=== PATIENT | female | born 1945 | race Caucasian/White ===

== ENCOUNTER → 2018-02-04 01:09 | Outpatient (CLI) | payer MEDICARE, OTHER, SELFPAY ==
--- NOTE | 2018-02-24 06:37 | ZIOP_ITS ---
ZIO PATCH MONITOR DATE OF DICTATION February 23, [address] 13 days 22 hours, February 04- 2017. INTERPRETATION Baseline rhythm Atrial fibrillation. Atrial fibrillation throughout study. Average heart rate 90 beats per minute, range 53-190. Nocturnal heart rates usually under 100 beats per minute. Daytime heart rates usually over 100 beats per minute. Rare single PVC versus aberrantly conducted beat. Rare couplet, rare triplets. No VT. No bradycardia/block. No trigged events. No symptoms. Carlito Sifuentes M.D. ALLISON/gayla T- 02/24/2018
== END ==
PROVIDERS: PCP Family Medicine; Visit Provider Family Medicine
DX: I48.91 Unspecified atrial fibrillation (principal)
CPT/HCPCS: 0296T; 93225

== ENCOUNTER → 2018-02-23 09:00 | Outpatient (CLI) | payer MEDICARE, OTHER, SELFPAY | PROVIDERS: PCP Family Medicine; Visit Provider Internal Medicine Interventional Cardiology | DX: I48.91 Unspecified atrial fibrillation (principal) | CPT/HCPCS: 0298T ==

== ENCOUNTER 2018-12-02 01:57 | Outpatient (CLI) | payer MEDICARE, OTHER, SELFPAY ==
[2018-12-02 08:10] LABS: ALT 23 U/L (12-78); AST 22 U/L (15-37); Albumin 3.8 g/dL (3.4-5.0); Alkaline Phosphatase 134 U/L (46-116); BUN 20 mg/dL (7-18); Bilirubin, Total 0.6 mg/dL (0.2-1.0); CREATININE 1.07 mg/dL (0.55-1.02); Calcium 8.9 mg/dL (8.5-10.1); Chloride 105 mmol/L (98-107); Cholesterol 207 mg/dL (50-200); Estimated GFR 50.55 (mL/min/1.73m2); Glucose 101 mg/dL (70-100); HDL Cholesterol 58 mg/dL (40-60); LDL CHOLESTEROL 126 mg/dL (<100); Sodium 142 mmol/L (136-145); Total Protein 6.7 g/dL (6.4-8.2); Triglyceride 75 mg/dL (30-150)
== END 2018-12-02 02:17 ==
PROVIDERS: PCP Family Medicine; Visit Provider Family Medicine
DX: E78.00 Pure hypercholesterolemia, unspecified (principal); I49.8 Other specified cardiac arrhythmias
CPT/HCPCS: 36415; 80053; 80061; 83721

== ENCOUNTER 2019-08-24 09:01 | Emergency (ER) | payer MEDICARE, OTHER, SELFPAY ==
[2019-08-24 09:17] VITALS: BP 122/69; PULSE 81; RESP 16; TEMP 36.7; O2SAT 98
--- NOTE | 2019-08-24 09:37 | ED.GENADUL_ITS ---
Discharge Plan Disposition Patient Disposition: HOME Condition: Stable Discharge Details Chief Complaint: Trauma Clinical Impression: Fracture of neck of left humerus, Head injury Primary Care Provider: Marisela Polanco ED Provider: Viki Harvey Home Meds and New Rx's Prescriptions: Continued aspirin [Aspirin Low-Strength] 81 MG tablet,chewable 81 mg PO DAILY RF: 0 cholecalciferol (vitamin D3) [Vitamin D3] 2,000 UNIT capsule 2,000 unit PO DAILY RF: 0 latanoprost 2.5 ML drops 1 drp Ophthalmic HS RF: 0 lorazepam 0.5 MG tablet 0.5 mg PO BID PRNQty: 30 RF: 0 diltiazem HCl 180 mg capsule,extended release 24hr 180 mg PO DAILY Qty: 90 RF: 4 calcium-vitamin D3-vitamin K 1 EACH tablet,chewable 2 ea PO DAILY RF: 0 Discharge Instructions Instructions: Arm Fracture in Adults (ED), Head Injury (ED) Additional Instructions: Keep sling on for immobilization as much as possible. Ortho will call you for a follow up appointment. Return if any severe worsening pain, problems with blood circulation to your hand, or any concerns. Also return for any worsening headache, blurry vision, nausea or vomiting, or confusion. Please take Tylenol or Ibuprofen with food every 4-6 hours as needed for pain and swelling. Referrals: Marisela Polanco MD, [place] [Primary Care Provider] - Yovani Ryder MD [ [facility] STAFF PHYSICIAN] - Medical Decision Making 74-year-old female presents after a slip and fall on the ice this morning. She states that she was bending over to pick something up and fell face forward onto the ground. She denies any loss of consciousness, neck or back pain. She is alert and oriented x4 upon arrival. She does have some abrasions noted to her forehead, bridge of nose and upper lip. She has a small hematoma noted to her left frontal scalp. She also is complaining of some left upper arm pain and has decreased range of motion without pain. Distal radial pulses are intact. No other complaints. At this time due to no focal neuro deficit, no blurry vision, no dizziness or LOC I have not ordered a head CT. X-ray of her left humerus was ordered. Patient states she is up-to-date on her tetanus shot. Tylenol p.o. ordered. FINDINGS: There is a mildly impacted fracture through the surgical neck of the left humerus. Fracture may extend proximally to involve the greater tuberosity. No other fracture is seen. Soft tissues are unremarkable. IMPRESSION: Mildly impacted fracture of the surgical neck of the left humerus. Spoke with Dr. Polo who is aboriginal education teacher for ortho at this time, discussed xrays and recommended treatment. He agrees that a basic sling should work. Patient placed on Ortho call list for follow up. Patient discharged remained hemodynamically stable throughout stay, discussed strict return instructions and home care, verbalized understanding. Dx: Left humural neck fracture, Closed head injury Ddx:Occult fracture, Concussion, Other fracture or injury HPI General Mode of arrival: ambulatory . Date/Time Provider Initiated Documentation: 08/24/19 09:02 . Limitations to Documentation: no limitations . Information obtained by: patient . HPI Narrative: 74-year-old female presents with left arm pain after a slip and fall around 830 this morning. Patient states that she was outside bending over to pick something up when she slipped on the ice and fell down face first. She has abrasions noted to her forehead and bridge of nose and upper lip, and she has tenderness over her left proximal humerus. Distal radial pulses are intact cap refill less than 3 seconds on her left arm. Denies loss of consciousness, no neck or back pain. No other injuries noted. She is alert and oriented x4 upon arrival. She does take dilti azem for A. fib and 81 mg aspirin daily. Related Data Home Medications Medication Instructions Recorded Confirmed calcium-vitamin D3-vitamin K 2 ea PO DAILY 11/29/12 08/24/19 aspirin [Aspirin Low-Strength] 81 mg PO DAILY tab-cap 09/07/15 08/24/19 cholecalciferol (vitamin D3) 2,000 unit PO DAILY 09/07/15 08/24/19 [Vitamin D3] latanoprost 1 drp OPHTHALMIC HS drp 07/17/16 08/24/19 lorazepam 0.5 mg PO BID PRN #30 tab 12/22/17 08/24/19 diltiazem HCl 180 mg 180 mg PO DAILY #90 cap 07/29/18 08/24/19 capsule,extended release 24 hr Previous Rx's Medication Instructions Recorded diltiazem HCl 180 mg 180 mg PO DAILY #90 cap 07/29/18 capsule,extended release 24 hr Allergies Allergy/AdvReac Type Severity Reaction Status Date / Time metoprolol AdvReac Severe extreme Unverified 08/24/19 09:23 fatigue promethazine AdvReac Anxious/Restless Unverified 08/24/19 09:23 w/Prometh w/codeine General Stated Complaint: Trauma TAYLOR: 2 Review of Systems Narrative: Constitutional: Negative for weight loss, alert and oriented, well groomed, normal body habitus, appears comfortable. Positive fall this morning. HEENT: Denies, headaches, blurry vision, nasal discharge, sore throat, trouble swallowing. Positive head trauma, abrasions noted no LOC. Chest: Denies chest pain, palpitations, irregular rhythm, hypertension. Respiratory: Denies Shortness of breath, cough, hemoptysis. GI: Denies abdominal pain, nausea, vomiting, diarrhea, constipation. : Denies dysuria, hematuria, flank pain, rectal bleeding. Neuro: Denies dizziness, blurry vision, weakness, syncope, headache or facial numbness. Extremities: Hematologic: Denies easy bruising, intolerance to heat or cold, hair loss. [facility] Medical History Anxiety (Chronic 01/27/14) Aortic valve insufficiency (Chronic 11/27/17) Atrial arrhythmia (Chronic 08/26/13) Mason score 2 = 1; no anticoagulation A fib Cervical pain (Chronic 04/10/17) Discoordination (Chronic 11/27/17) Gastric motor function disorder (Chronic) Kidney stone (Resolved 06/05/02) Macular hole, left eye (Chronic 01/20/18) [facility] [place]osis (Chronic 04/29/08) Tricuspid valve insufficiency (Chronic 12/16/17) Vitamin D deficiency (Chronic) Surgical History Fracture, Closed Treatment 05/24/16; DR. HINTON;LEFT RING FINGER, MIDDLE PHALANX Family History Mother , 78 Mental disorder DEMENTIA Stroke Father , 92 Atrial fibrillation Stroke Sister Atrial fibrillation Heart disease Brother No problems noted. Maternal Grandfather No problems noted. Paternal Grandfather , 94 No problems noted. Maternal Grandmother , 78 Heart disease PACEMAKER Paternal Grandmother , 80 Ovarian cancer Brother , 73 COPD (chronic obstructive pulmonary disease) Son No problems noted. Daughter No problems noted. Daughter No problems noted. Sister , 84 Throat cancer Sister No problems noted. NIECE Neoplasm LUNG Social History Smoking/Tobacco Use Status: Never Second Hand Exposure: Yes Alcohol Intake: current Alcohol Intake frequency: a few times a month Drug use: Never Substance use type: does not use Caregiver/Support person: No Household members: spouse Housing: apartment Communication Needs: None Do you need help understanding health information?: Rarely Pets and animals: No Sexually active: No Do you think of yourself as: straight/heterosexual What is your relationship status?: How often do you talk on the phone with friends or family?: three or more times per week How often do you get together with friends or relatives?: three or more times per week How often do you attend buddhist or anabaptism services?: 1-3 times per year Do you belong to any clubs or organized social groups?: yes Panel score (0-1 are the most socially isolated patients): 3 What type of physical activity do you participate in: walking Duration: 15-30 minutes/day Frequency: 3-4 times per week Ayah/Holiness: Moravian Special ayah needs: No Seatbelt use: always Helmet use: Yes Helmet use: always Drive intox or ride w/intox company tanker truck driver: No Do you feel safe at home: Yes Do you feel safe in your relationship?: Yes Exam Narrative Exam Narrative: Constitutional: Allert and oriented x3. Appears stated age. Normal body habitus. Head: Normocephalic, small hematoma noted to her left frontal scalp, multiple abrasions noted to the bridge of her nose and upper lip. Eyes: Pupils PERRLA, Red reflex noted, EOM's intact. Eyelids symmetrical withour lesions, discharge, or swelling. ENT: Bilateral TM's WNL, External ear normal to inspection, no mastoid TTP, swelling, or erythema, Nasal turbinates WNL, no nasal discharge. Normal dentition, Posterior pharynx WNL, no exudate. Chest: RRR, Normal S1, S2, distal pulses intact. Resp: Lungs clear to auscultation bilaterally, no wheezes, rales, or rhonchi. Musculoskeletal: Normal gait, 5/5 strength to all four extremities. Tenderness noted to her proximal humerus with palpation. No elbow tenderness to palpation. Skin: Superficial abrasions noted to her face, capillary refill ?2 sec. Neurologic: Cranial nerves II-XII intact. Alert and oriented x 3. DTR's intact. Hematologic/Lymphatic: No ecchymosis, no lymphadenopathy. [facility] Head: no palpable skull fracture and normocephalic Face and sinus: sinuses nontender and abrasion bilaterally Mouth: oral mucosae normal Teeth and gingiva: dentition normal Extrem Left upper extremity: normal capillary refill and shoulder/upper arm Details: tenderness and swelling; ROM limited and no deformity Course Vital Signs Vital signs: Vital Signs Temperature 36.7 C 08/24/19 09:17 Pulse 81 08/24/19 09:17 Respiratory Rate 16 08/24/19 09:17 Blood Pressure 122/69 08/24/19 09:17 Pulse Oximetry 98 08/24/19 09:17 Temperature 36.7 C 08/24/19 09:17 Temperature Source Temporal Artery Scan 08/24/19 09:17 Pulse 81 08/24/19 09:17 Respiratory Rate 16 08/24/19 09:17 Respiratory Effort Non-Labored 08/24/19 09:24 Respiratory Depth Normal 08/24/19 09:24 Respiratory Pattern Normal 08/24/19 09:24 Blood Pressure 122/69 08/24/19 09:17 Blood Pressure Position Sitting 08/24/19 09:17 Pulse Oximetry 98 08/24/19 09:17 Oxygen Delivery Method Room Air 08/24/19 09:17 Oxygen Flow Rate 0 08/24/19 09:17 Pain Level 8 08/24/19 09:24
[2019-08-24] MEDS: Acetaminophen 500 MG TAB PO (09:42)
--- NOTE | 2019-08-24 10:00 | DI.RAD_ITS ---
EXAM: XR HUMERUS LT INDICATION: Fall arm injury. COMPARISON: No exams were available for comparison TECHNIQUE: 2D digital imaging was performed. FINDINGS: There is a mildly impacted fracture through the surgical neck of the left humerus. Fracture may exte nd proximally to involve the greater tuberosity. No other fracture is seen. Soft tissues are unrema rkable. IMPRESSION: Mildly impacted fracture of the surgical neck of the left humerus.
== END 2019-08-24 10:29 | disposition home or self-care (01) ==
LOC: ER 10:33
PROVIDERS: Emergency Provider Registered Nurse Emergency; PCP Family Medicine
DX: S42.202A Unspecified fracture of upper end of left humerus, initial encounter for closed fracture (principal); S09.8XXA Other specified injuries of head, initial encounter; W01.0XXA Fall on same level from slipping, tripping and stumbling without subsequent striking against object, initial encounter
CPT/HCPCS: 99283; 73060; L3650

== ENCOUNTER 2019-09-07 13:19 | Outpatient (CLI) | payer MEDICARE, OTHER, SELFPAY ==
--- NOTE | 2019-09-07 13:00 | DI.RAD_ITS ---
EXAM: XR SHOULDER LT COMPLETE 2+V INDICATION: FOLLOW UP. COMPARISON: XR HUMERUS LT from 08/24/2019 TECHNIQUE: 2D digital imaging was performed. FINDINGS: There has been no change in the alignment of the previously noted fracture of the surgical neck of th e humerus. No new abnormalities are seen. DATA REPOSITORY: RADIATION DOSE DELIVERED:
== END 2019-09-07 13:39 ==
PROVIDERS: PCP Family Medicine; Referring Provider Family Medicine; Visit Provider Student in an Organized Health Care Education/Training Program
DX: S42.292A Other displaced fracture of upper end of left humerus, initial encounter for closed fracture; W19.XXXA Unspecified fall, initial encounter
CPT/HCPCS: 99204; 99215; 73030

== ENCOUNTER 2019-10-27 08:43 | Outpatient (CLI) | payer MEDICARE, OTHER, SELFPAY ==
--- NOTE | 2019-10-27 07:45 | DI.RAD_ITS ---
EXAM: XR SCAPULA LT CLINICAL HISTORY: f/u fracture TECHNIQUE: 2D digital imaging was performed. COMPARISON: XR SHOULDER LT COMPLETE 2+V from 09/07/2019 FINDINGS: There has been some interval healing of the previously noted fracture through the proximal humerus. The alignment is unchanged. No new abnormalities are seen.
== END 2019-10-27 09:03 ==
PROVIDERS: PCP Family Medicine; Referring Provider Family Medicine; Visit Provider Student in an Organized Health Care Education/Training Program
DX: S42.292D Other displaced fracture of upper end of left humerus, subsequent encounter for fracture with routine healing; W19.XXXD Unspecified fall, subsequent encounter
CPT/HCPCS: 99214; 73010

== ENCOUNTER 2019-12-23 02:58 | Outpatient (CLI) | payer MEDICARE, OTHER, SELFPAY ==
--- NOTE | 2019-12-23 15:55 | DI.DEXA_ITS ---
EXAM: XR DEXA BONE DENSITY W/WO BRAEDEN CLINICAL HISTORY: osteoporosis,m81.0 TECHNIQUE: HoloCovario C densitometer. COMPARISON: CR CERV SP.WITH OBL OR FLEX/EXT from 03/26/2012 CR ABD FLAT UPRIGHT PA CHEST from 04/16/2016 CR XR HUMERUS LT from 08/24/2019 DEXA scan from 2007. FINDINGS: The lateral view of the thoracic and lumbar spine shows accentuation of the thoracic kyphosis but n o visible compression fracture. The bone mineral density measurements of the lumbar spine correspond to a total T-score of -2.2, cons istent with osteopenia. This is a 7.0 percent decrease when compared with 2008. The bone mineral density measurements of the left hip correspond to a total T-score of -1.9 and a fem oral neck T-score -2.2, in the osteopenic range. There has been a 6.6 percent decrease in hip bone d ensity when compared with 2007. The left forearm bone density measurements correspond to a T-score of the distal 3rd of -3.3, consist ent with osteoporosis. The forearm was not analyzed in 2008. IMPRESSION: Osteopenia of the lumbar spine and left hip with mild decrease in density when compared with 2008. Osteoporosis of the left forearm.
--- NOTE | 2019-12-23 16:15 | DI.MAMMO_ITS ---
EXAM: MAMMO SCREENING CLINICAL HISTORY: screening,z12.39 TECHNIQUE: Mammograms were interpreted according to the usual protocol including computer analysis w ith CAD system, tomosynthesis and C-view imaging. COMPARISON: 2009 through 2017 FINDINGS: The breasts are composed of scattered fibroglandular densities, Breast Density category B. No suspicious masses or suspicious microcalcifications are seen. No skin thickening or abnormal axillary lymph nodes are seen. There has been no significant change from prior exams. IMPRESSION: BI-RADS Category 1 - Negative Yearly screening mammography is recommended. Breast Density Category B, scattered fibroglandular densities. +
== END 2019-12-23 03:18 ==
PROVIDERS: PCP Family Medicine; Visit Provider Family Medicine
DX: Z12.31 Encounter for screening mammogram for malignant neoplasm of breast (principal); M85.88 Other specified disorders of bone density and structure, other site; M81.0 Age-related osteoporosis without current pathological fracture
CPT/HCPCS: 77063; 77067; 77080

== ENCOUNTER 2020-01-12 11:10 | Outpatient (CLI) | payer MEDICARE, OTHER, SELFPAY ==
--- NOTE | 2020-01-12 08:00 | DI.RAD_ITS ---
EXAM: XR SHOULDER LT COMPLETE 2+V CLINICAL HISTORY: fx humerus left. TECHNIQUE: 2D digital imaging was performed. COMPARISON: No exams were available for comparison FINDINGS: BONES: A proximal humeral fracture is again noted which appears healed.. Subchondral cysts are seen near the lesser tuberosity. No acute fracture is present. No bony destructive lesion is seen. JOINTS: There is spurring at the AC joint. There is a mild glenohumeral joint space narrowing and mi ld spurring from the glenoid. No dislocation present. SOFT TISSUE: Normal. IMPRESSION: Old healed proximal humeral fracture. Mild degenerative changes. DATA REPOSITORY: RADIATION DOSE DELIVERED:
== END 2020-01-12 11:30 ==
PROVIDERS: PCP Family Medicine; Visit Provider Student in an Organized Health Care Education/Training Program
DX: S42.292D Other displaced fracture of upper end of left humerus, subsequent encounter for fracture with routine healing (principal); M19.012 Primary osteoarthritis, left shoulder; W19.XXXD Unspecified fall, subsequent encounter
CPT/HCPCS: 99213; 73030

== ENCOUNTER → 2020-01-19 09:18 | Outpatient (BNVA) | payer MEDICARE, OTHER, SELFPAY | PROVIDERS: PCP Family Medicine; Referring Provider Family Medicine; Visit Provider Surgery | DX: R19.5 Other fecal abnormalities (principal) | CPT/HCPCS: 99202; 99213 ==

== ENCOUNTER 2020-01-27 10:07 | Day surgery (SDC) | payer MEDICARE, OTHER, SELFPAY ==
[2020-01-27 10:28] VITALS: BP 135/85; PULSE 107; RESP 16; TEMP 36.1; O2SAT 98
[2020-01-27] MEDS: Lactated Ringers 1,000 ML 80 ML IV (11:06)
--- NOTE | 2020-01-27 12:56 | BOWEL_PTH ---
PATIENT: Nivia Kitchen LOC: [facility] U#:[id number] AGE/SX: 74/F ROOM: RE01/27/[address]: Barbara Godwin : 1945 BED: DIS: 01/27/2020 SPEC #: [id number] RECD: 01/27/20 17:14 STATUS: EVY RE #: [id number] PAUL: 01/27/20 12:[address]: Barbara Godwin DEPT: Surgical Specimen RECD BY: Bekah Pichardo ENTERED: 01/27/20 17:14 SP TYPE: Bowel OTHR DR: Marisela Polanco MD, DC Tissues: 1 - BIOPSY BOWEL 2 - BIOPSY BOWEL Procedures: GROSS AND MICRO LEVEL 4 Comments: [id number]
--- NOTE | 2020-01-27 13:07 | W.PM.DSUDISC ---
Discharge Plan Disposition Patient Disposition: HOME Condition: Good Discharge Details Reason For Visit: colon scope Attending Provider: Barbara Godwin Primary Care Provider: Marisela Polanco Home Meds and New Rx's Prescriptions: Continued timolol 0.5 % drops 1 drp OP DAILY RF: 0 aspirin [Aspirin Low-Strength] 81 MG tablet,chewable 81 mg PO DAILY RF: 0 cholecalciferol (vitamin D3) [Vitamin D3] 2,000 UNIT capsule 2,000 unit PO DAILY RF: 0 latanoprost 2.5 ML drops 1 drp Ophthalmic HS RF: 0 calcium-vitamin D3-vitamin K 1 EACH tablet,chewable 2 ea PO DAILY RF: 0 diltiazem HCl 180 mg capsule,extended release 24hr 180 mg PO HS RF: 0 Discharge Instructions Additional Instructions: Findings:x2 small polyps will send a letter (in 2-3wks) w/ results, and if we need to repeat scope. Follow up:repeat in 5yrs time- path pd. IF still healthy for anesthesia Please call if you develop: fevers >101.5 Nausea or Vomiting Abdominal pain that is not transient DAY SURGERY UNIT POST COLONOSCOPY INSTRUCTIONS 1. Because there will be medication in your system for the next 24 hours, you may feel a little sleepy. Your coordination will be affected. Therefore: a. Do not drive or operate dangerous equipment for 24 hours. b. Do not drink alcohol beverages for 24 hours (not even beer). c. Plan to go home and rest for the day. 2. Generally there are no restrictions on your activity after a day or so has gone by, but you may feel a bit fatigued for a few days. 3 After you arrive home you may have a light meal and return to a normal diet as you can tolerate it without feeling sick to your stomach. 4. After surgery, you may feel pain or discomfort. This should be only transient, but if it persists please contact your doctor. 5. If there are any questions regarding the findings of your procedure, please feel free to contact your doctor. 6. If you are unable to contact your doctor with a problem, contact the hospital at [phone]. 7. Continue all your regular medications unless directed otherwise. I understand the above instructions and have no questions. Signature of Patient or Responsible Adult Escort Date/Time Name of Responsible Adult Escort Signature of Nurse Date/Time Activity:: No heavy lifting over 20 pounds or strenuous activity x24 hours Diet:: Small light meals x24 hours Discharge Orders Discharge Orders: Discharge Order (Routine); Ordered 01/27/20 Ordered By: Barbara Godwin DS: Diagnosis Discharge Diagnosis (1) Positive colorectal cancer screening using Cologuard test: Status: Acute (2) Adenomatous polyps: Status: Acute
--- NOTE | 2020-01-27 13:11 | W.COLOREPORT ---
Date of service: 01/27/20 Time of Service: 13:11 Colonoscopy Report Date of procedure: 01/27/20 Pre-op diagnosis general: +cologuard Post-op diagnosis procedure note: other Procedure: CE Anesthesia proc note operative: MAC Estimated blood loss (mL): 1 Pathology: other Complications: None Disposition: same day Prep: Miralax/Dulcolax Retraction Time: 12 Procedure Description: After informed consent was obtained the patient was taken to the procedure room and placed in a left decubitous position. Monitors were applied and a time out was done. The patients name, date of , procedure, allergies to medications and metal in their body was reviewed. The patient was then sedated. Once sedated and comfortable a rectal exam was done. External exam -grade 1 external hemorrhoids . Internal exam revealed a normal sphincter tone and no palpable masses. The scope was then introduced and retrofelexed. no internal hemorrhoids were identified. The scope was then advanced to the cecum w/out difficulty. The TI and appendiceal orifice were identified. The prep was good. The scope was then slowly retracted over 12 minutes back into the rectum. She had 2 small polyps that were adenomatous. They were removed with a cold biting forcep. All specimen is retrieved and no bleeding is noted. 1 is at 50 cm and 1 is at 60 cm. She has a few small scattered diverticula confined to the sigmoid colon they are very small and of no significance. There is no sign of any active bleeding or infection the mucosa is pink and healthy. The scope was removed and the patient was woken up and taken back to Same day surgery in stable condition. The patient tolerated the procedure well and there were no immediate complications. Follow up: The patient should follow up in 5 years-path pending and depending upon patient's, Unless they develop changes in bowel habits or other new gastrointestinal complaints.
[2020-01-27 13:51] VITALS: BP 115/75; PULSE 85; RESP 16; TEMP 36.5; O2SAT 100
== END 2020-01-27 14:25 | disposition home or self-care (01) ==
PROVIDERS: PCP Family Medicine; Visit Provider Surgery
PROC: 0DJD8ZZ Inspection of Lower Intestinal Tract, Via Natural or Artificial Opening Endoscopic (ICD-10-PCS; CPT 45378; principal; 2020-01-27 11:15)
DX: R19.5 Other fecal abnormalities (principal); K64.0 First degree hemorrhoids; D12.6 Benign neoplasm of colon, unspecified
CPT/HCPCS: 45380; 88305; J2001

== ENCOUNTER 2020-12-13 02:50 | Outpatient (CLI) | payer MEDICARE, SELFPAY ==
[2020-12-13 10:35] LABS: ALT 27 U/L (14-59); AST 24 U/L (15-37); Alkaline Phosphatase 138 U/L (46-116); Anion Gap 7.6 mmol/L (3-11); BUN 19 mg/dL (7-18); Bilirubin, Total 0.7 mg/dL (0.2-1.0); CO2 30.4 mmol/L (21.0-32.0); CREATININE 1.2 mg/dL (0.55-1.02); Calcium 9.9 mg/dL (8.5-10.1); Chloride 105 mmol/L (98-107); Estimated GFR 44.04 (mL/min/1.73m2); Glucose 104 mg/dL (74-106); Potassium 4.6 mmol/L (3.5-5.1); Sodium 143 mmol/L (136-145)
== END 2020-12-13 02:51 | disposition home or self-care (01) ==
PROVIDERS: PCP Family Medicine; Visit Provider Family Medicine
DX: I10 Essential (primary) hypertension (principal)
CPT/HCPCS: 36415; 80053

== ENCOUNTER 2021-04-09 20:46 | Emergency (ER) | payer MEDICARE, SELFPAY ==
--- NOTE | 2021-04-09 20:45 | DI.CT_ITS ---
Exam(s) CT RENAL COLIC WO EXAM: CT RENAL COLIC WO CLINICAL HISTORY: flank pain. TECHNIQUE: Imaging Protocol: Axial computed tomography images with coronal and sagittal reformatted images were created and reviewed. COMPARISON: No exams were available for comparison FINDINGS: ABDOMEN: Lung Bases: Normal where visualized. Liver: Normal density. No measurable mass. Gallbladder and biliary tract: No radiodense calculus or biliary ductal dilation. Pancreas: Normal density, no abnormal calcifications or inflammatory process. Spleen: Normal. Kidneys: Normal size, contour and axis.There is a 8 mm stone in the proximal left ureter causing mode rate hydronephrosis. Bilateral nephrolithiasis. No masses seen. Adrenal glands: No mass is seen. Lymph nodes: Within normal limits. Abdominal Aorta: Abdominal portion non-dilated. PELVIS: Bladder:Symmetric distention, no gross wall thickening. Bowel: No obstruction or bowel wall thickening. No appendicitis. There are scattered diverticula but no evidence of acute diverticulitis. Peritoneal cavity: No ascites, collection or mesenteric inflammatory response. No free air. Reproductive organs: Within normal limits. Bones: Within normal limits. Soft Tissues: Within normal limits. IMPRESSION: 1. Obstructing 8 mm stone in the proximal left ureter causing moderate hydronephrosis. 2. Bilateral nephrolithiasis. RADIATION DOSE DELIVERED: 730mGy.cm Total DLP DATA REPOSITORY: All CT scans at this facility are submitted to the National Radiology Data Registry (NRDR) Dose Index Registry (DIR) with the [employer] (A[employer]). RADIATION OPTIMIZATION: All CT scans at this facility use at least one of these dose optimization te chniques: automated exposure control; mA and/or kV adjustment per patient size (includes targeted exa ms where dose is matched to clinical indication); or iterative reconstruction.
[2021-04-09] MEDS: Normal Saline 1,000 ML 1000 ML IV (20:50)
[2021-04-09 20:55] VITALS: BP 152/101; PULSE 115; RESP 20; TEMP 36.1; O2SAT 98
--- NOTE | 2021-04-09 21:01 | ED.GENADUL_ITS ---
Discharge Plan Disposition Patient Disposition: HOME Condition: Stable Discharge Details Clinical Impression: Kidney stone on left side Primary Care Provider: Marisela Polanco ED Provider: Carlito Fong Home Meds and New Rx's Prescriptions: New ondansetron 4 mg tablet,disintegrating 4 mg PO Q8H PRN (Reason: nausea and vomiting) Qty: 30 RF: 0 Continued timolol 0.5 % drops 1 drp OP DAILY RF: 0 aspirin [Aspirin Low-Strength] 81 MG tablet,chewable 81 mg PO DAILY RF: 0 cholecalciferol (vitamin D3) [Vitamin D3] 2,000 UNIT capsule 2,000 unit PO DAILY RF: 0 latanoprost 2.5 ML drops 1 drp Ophthalmic HS RF: 0 diltiazem HCl 180 mg capsule,extended release 24hr 180 mg PO HS Qty: 90 RF: 5 calcium-vitamin D3-vitamin K 1 EACH tablet,chewable 2 ea PO DAILY RF: 0 Discharge Instructions Instructions: Kidney Stones (ED) Additional Instructions: you have a kidney stone in the left ureter you should be contacted with an appointment to see urology you can take 1000mg tylenol and 600mg ibuprofen every 6 hours as needed for pain if you feel more ill, have severe uncontrolled pain, persistent vomit, or fevers return to the emergency department Medical Decision Making 76 yo female with hx of prior kidney stones, htn, who comes in with left lower back pain and nausea since last night and has noticed bloody urine for a week. She states the pain radiates to the left lower abdomen. She denies fevers, chills, chest pain, dyspnea. She is stable but does appear in pain. She has no cva tenderness, localizes the pain to the left lower back. Has no abdominal tenderness on exam. Her history and current exam make kidney stone the most likely diagnosis, will obtain labs and ct renal colic to further evaluate ct confirms left sided ureter stone 8mm. metabolic panel still pending. She states her pain is 0 after toradol and feels comfortable with d/c and follow up with urology. if metabolic panel is benign will d/c with zofran and she declines prescription pain medication. Return precautions given Differential Diagnosis Differential Diagnosis: kidney stone, pyelo, diverticulitis Medical Records Medical records reviewed: Yes I reviewed the patient's medical records. Imaging Data Radiologic Study: Attestation: I personally reviewed and interpreted this imaging study as follows: Imaging: CT Scan Radiologist's impression: IMPRESSION: 1. Bilateral nephrolithiasis as above. Mild to moderate hydroureteronephrosis of the left kidney. The left kidney is obstructed secondary to a proximal to mid ureteral calculus measuring 8 mm. 2. Arteriosclerotic changes of the aorta. 3. Osseous findings as above. Lab Data Lab results reviewed: Yes I reviewed the patient's lab results. HPI General Mode of arrival: ambulatory . Date/Time Provider Initiated Documentation: 04/09/21 20:47 . Limitations to Documentation: no limitations . Information obtained by: patient . History of Present Illness 76 year old F presents to the emergency department with the chief complaint of left lower back pain, described as severe, Quality is described as aching, Patient reports radiation to back. Patient started experiencing this day(s) (1) and it has been constant. No relieving factors improve symptom(s), No exacerbating factors reported . Patient notes nausea/vomiting. Patient did receive the following treatments prior to arrival, none Related Data Home Medications Medication Instructions Recorded Confirmed calcium-vitamin D3-vitamin K 2 ea PO DAILY 11/29/12 04/09/21 aspirin [Aspirin Low-Strength] 81 mg PO DAILY tab-cap 09/07/15 04/09/21 cholecalciferol (vitamin D3) 2,000 unit PO DAILY 09/07/15 04/09/21 [Vitamin D3] latanoprost 1 drp OPHTHALMIC HS drp 07/17/16 04/09/21 timolol 0.5 % eye drops 1 drp OP DAILY 01/19/20 04/09/21 diltiazem HCl 180 mg 180 mg PO HS #90 cap 09/29/20 04/09/21 capsule,extended release 24 hr ondansetron 4 mg PO Q8H PRN #30 tab 04/09/21 Previous Rx's Medication Instructions Recorded diltiazem HCl 180 mg 180 mg PO HS #90 cap 09/29/20 capsule,extended release 24 hr ondansetron 4 mg PO Q8H PRN #30 tab 04/09/21 Allergies Allergy/AdvReac Type Severity Reaction Status Date / Time metoprolol AdvReac Severe extreme Verified 04/09/21 21:14 fatigue promethazine AdvReac Anxious/Restless Verified 04/09/21 21:14 w/Prometh w/codeine General Stated Complaint: FlankPain TAYLOR: 3 Review of Systems All systems reviewed & are unremarkable except as noted in HPI and below Constitutional Constitutional: Denies chills, Denies fever(s) and Denies weakness Cardiovascular Cardiovascular: Denies chest pain and Denies dyspnea Respiratory Respiratory: Denies cough and Denies dyspnea Musculoskeletal Musculoskeletal: Denies joint swelling Neurologic Neurologic: Denies weakness [facility] Medical History (Updated 04/09/21 @ 21:47 by Carlito Fong MD) Adenomatous polyps Anxiety (01/27/14) Aortic valve insufficiency (11/27/17) Atrial arrhythmia (08/26/13) Mason score 2 = 1; no anticoagulation A fib Cervical pain (04/10/17) Discoordination (11/27/17) Pt. states this was in issue short term pt. believed it was vertigo related Gastric motor function disorder Kidney stone (06/05/02) Left humeral fracture [place], [place]20/18[place] [facility] [place]) Tricuspid valve insufficiency (12/16/17) Vitamin D deficiency Surgical History Fracture, Closed Treatment 05/24/16; DR. HINTON;LEFT RING FINGER, MIDDLE PHALANX History of colonoscopy (~01/19/20) Tubular adenoma Family History Mother , 78 Mental disorder DEMENTIA Stroke Father , 92 Atrial fibrillation Stroke Sister Atrial fibrillation Heart disease Brother COPD (chronic obstructive pulmonary disease) Maternal Grandfather , young No problems noted. Paternal Grandfather , 94 No problems noted. Maternal Grandmother , 78 Heart disease PACEMAKER Paternal Grandmother , 80 Ovarian cancer Brother , 73 COPD (chronic obstructive pulmonary disease) Son No problems noted. Daughter No problems noted. Daughter No problems noted. Sister , 84 Throat cancer Sister No problems noted. NIECE Lung cancer Social History (Updated 12/12/20 @ 16:32 by Carmen Green) Smoking/Tobacco Use Status: Never Second Hand Exposure: Yes Smoking risk assessment performed?: Yes Alcohol Intake: current Alcohol Intake frequency: a few times a month Alcohol type: wine Drug use: Never Substance use type: does not use Caregiver/Support person: No Household members: spouse Communication Needs: None Do you need help understanding health information?: Never Pets and animals: No Sexually active: No Do you think of yourself as: straight/heterosexual Current gender identity: male What is your relationship status?: How often do you talk on the phone with friends or family?: three or more times per week How often do you get together with friends or relatives?: three or more times per week How often do you attend restorationism or roman catholic services?: 1-3 times per year Do you belong to any clubs or organized social groups?: yes Panel score (0-1 are the most socially isolated patients): 3 What type of physical activity do you participate in: walking Duration: 60-90 minutes/day Frequency: 3-4 times per week Special jessica needs: No Seatbelt use: always Drive intox or ride w/intox national dedicated truck driver: No Do you feel safe at home: Yes Do you feel safe in your relationship?: Yes Exam Const General: no acute distress Orientation: alert HENMT Head: normal to inspection Ears: external ears normal General nose exam: external nose normal Mouth: moist mucous membranes Eyes General: appearance normal, both eyes and all related structures Neck Neck: normal visual inspection Resp Effort & Inspection: normal respiratory effort and able to speak in complete sentences Cardio Rate: regular rate GI Palpation: soft Skin General skin exam: no rashes or lesions noted Neuro General: patient alert and patient oriented x3 Extrem General: normal to inspection Psych Mental Status: mental status grossly normal Course Vital Signs Vital signs: Vital Signs Temperature 36.1 C L 04/09/21 20:55 Pulse 115 H 04/09/21 20:55 Respiratory Rate 20 04/09/21 20:55 Blood Pressure 152/101 H 04/09/21 20:55 Pulse Oximetry 98 04/09/21 20:55 Temperature 36.1 C L 04/09/21 20:55 Temperature Source Temporal Artery Scan 04/09/21 20:55 Pulse 115 H 04/09/21 20:55 Respiratory Rate 20 04/09/21 20:55 Respiratory Effort 04/09/21 20:58 Blood Pressure 152/101 H 04/09/21 20:55 Blood Pressure Position Supine 04/09/21 20:55 Pulse Oximetry 98 04/09/21 20:55 Oxygen Delivery Method Room Air 04/09/21 20:55 Oxygen Flow Rate 0 04/09/21 20:55 PAWSS Have you Been Recently Intoxicated or Drunk Within the Last 30 days?: No Have you Ever Experienced Previous Episodes of Alcohol Withdrawal?: No Have you ever Experienced Withdrawal Seizures?: No Have you ever Experienced Delirium Tremens(DT)s?: No Have you ever undergone Alcohol Rehabilitation Treatment (i.e, inpt ot outpatient treatment programs)?: No Have you ever Experienced Blackouts?: No Have you ever Combined Alcohol with other Downers within the last 90 days?: No Have you ever Combined Alcohol with any other Substance of Abuse during the last 90 days?: No Positive Blood Alcohol level on Presentation? [PCS.BAL]: No Evidence of Increased Autonomic Activity (i.e. HR>120, tremor, sweating, agitation, nausea)?: No Result: 0
[2021-04-09 21:19] LABS: Abs Immature Grans 0.06 10^3/uL (0.0-0.06); Absolute Basophil Count 0.12 10^3/uL (0.0-0.2); Absolute Eosinophil Count 0.27 10^3/uL (0.0-0.7); Absolute Lymphocyte Count 1.24 10^3/uL (1.2-3.4); Absolute Monocyte Count 0.71 10^3/uL (0.1-0.8); Basophils % 1.1; Eosinophils % 2.5; HCT 47.8 % (36.0-46.0); HGB 15.5 g/dL (11.2-15.7); Immature Grans % 0.6; Lymphocytes % 11.5; MCH 30.3 pg (27.0-33.0); MCHC 32.4 % (32.0-36.0); MCV 93.4 fL (80-95); MPV 9.6 fL (8.0-11.0); Monocytes % 6.6; Neutrophils % 77.7; Nucleated RBC 0 %; Platelet Count 266 10^3/uL (130-400); RBC 5.12 10^6/uL (3.93-5.22); RDW 12.9 % (11.7-14.6); RDW-SD 44.7 fL
[2021-04-09 21:20] LABS: Bilirubin Small (Negative); Blood Large (Negative); Clarity Cloudy (Clear); Glucose Negative (Negative); Ketones Trace mg/dL (Negative); Leukocyte Esterase Trace (Negative); Nitrite Negative (Negative); Specific Gravity >= 1.030 (1.005-1.025); Urobilinogen 0.2 EU/dL (Up TO 0.2); pH 5.5 (5-8)
[2021-04-09 21:31] LABS: RBC >50 HPF (0-2)
[2021-04-09 21:32] LABS: C & S Indicated? Yes; Casts Negative LPF (Negative); Crystals Negative HPF (Negative); Mucus Negative (Negative)
[2021-04-09] MEDS: Ketorolac 15 MG/ML VIAL IVP (21:34)
[2021-04-09] MEDS: Ondansetron 4 MG/2 ML VIAL IVP (21:35)
--- NOTE | 2021-04-09 22:04 | DI.VRAD_ITS ---
PROCEDURE INFORMATION: Exam: CT Abdomen And Pelvis Without Contrast Exam date and time: 04/09/2021 8:51 PM Age: 76 years old Clinical indication: Abdominal pain; Left; Patient HX: L flank pain, radiating; Per PT: Blood in urine TECHNIQUE: Imaging protocol: Computed tomography of the abdomen and pelvis without contrast. COMPARISON: CR ABD FLAT UPRIGHT PA CHEST 04/16/2016 5:16 PM FINDINGS: Lungs: The visualized lung bases are unremarkable. Liver: The visualized portions of the liver are unremarkable. Gallbladder and bile ducts: The gallbladder is unremarkable. Pancreas: The pancreas is within normal limits. Spleen: The visualized portions of the spleen appear unremarkable. Adrenal glands: The adrenal glands are unremarkable. Kidneys and ureters: There is a small calculus in the lower pole of the right kidney measuring 2 mm. This not obstructing. There is a calculus in the upper pole region of the left kidney measuring 3 mm. There is mild to moderate hydroureteronephrosis of the left kidney. The left kidney is obstructed secondary to a proximal to mid ureteral calculus measuring 8 mm. Stomach and bowel: There are diverticulum of the colon. Appendix: No evidence of appendicitis. Intraperitoneal space: Unremarkable. No free air. No significant fluid collection. Vasculature: There are arteriosclerotic changes of the aorta. There are multiple phleboliths within the pelvis. Lymph nodes: No enlarged lymph nodes. Urinary bladder: The urinary bladder is not very distended with urine. Reproductive: The uterus and ovaries are within normal limits. Bones/joints: There is degenerative disc disease at L5-S1. There are degenerative changes of both hips. Soft tissues: Unremarkable. IMPRESSION: 1. Bilateral nephrolithiasis as above. Mild to moderate hydroureteronephrosis of the left kidney. The left kidney is obstructed secondary to a proximal to mid ureteral calculus measuring 8 mm. 2. Arteriosclerotic changes of the aorta. 3. Osseous findings as above. Dictated and Authenticated by: Syed Stout MD. Ordering:MAULIK Esteban MD
[2021-04-09 22:11] LABS: ALT 19 U/L (14-59); AST 25 U/L (15-37); Albumin 3.8 g/dL (3.4-5.0); Alkaline Phosphatase 131 U/L (46-116); Anion Gap 9.5 mmol/L (3-11); BUN 22 mg/dL (7-18); Bilirubin, Total 0.6 mg/dL (0.2-1.0); CO2 26.5 mmol/L (21.0-32.0); CREATININE 1.5 mg/dL (0.55-1.02); Calcium 9.3 mg/dL (8.5-10.1); Chloride 107 mmol/L (98-107); Estimated GFR 33.94 (mL/min/1.73m2); Glucose 124 mg/dL (74-106); Lipase 180 U/L (73-393); Potassium 4.1 mmol/L (3.5-5.1); Sodium 143 mmol/L (136-145); Total Protein 6.6 g/dL (6.4-8.2)
--- NOTE | 2021-04-09 22:14 | NUR.NOTE ---
Nursing Note: REFERAL SENT TO UROLOGY TO FOLLOW UP FOR KIDNEY STONES 04/09/21
[2021-04-09] MEDS: Ondansetron O.D.T. 4 MG TABEF, 3 TABS/BTL PO (22:26)
[2021-04-09 22:43] VITALS: BP 132/88; PULSE 88; RESP 20; TEMP 37.5; O2SAT 98
== END 2021-04-09 22:15 | disposition home or self-care (01) ==
PROVIDERS: Emergency Provider Emergency Medicine; PCP Family Medicine
DX: N13.2 Hydronephrosis with renal and ureteral calculous obstruction (principal); R11.0 Nausea; N13.4 Hydroureter; Z87.442 Personal history of urinary calculi
CPT/HCPCS: 36415; 80053; 83690; 96361; 96374; 96375; 99284; 74176; 81003; 81015; 85025; 87086; 99285; J1885; J2405

== ENCOUNTER → 2021-04-13 14:46 | Outpatient (BNVA) | payer MEDICARE, SELFPAY | PROVIDERS: PCP Family Medicine; Referring Provider Family Medicine; Visit Provider Urology | DX: N20.1 Calculus of ureter (principal) | CPT/HCPCS: 99215; 99244 ==

== ENCOUNTER 2021-04-13 18:45 | Outpatient (REF) | payer MEDICARE, SELFPAY ==
[2021-04-13 18:52] LABS: Source Nasal/Nares
[2021-04-14 15:23] LABS: COVID-19 PCR Negative (Negative)
== END 2021-04-13 18:46 | disposition home or self-care (01) ==
LOC: LBN 18:45
PROVIDERS: PCP Family Medicine; Visit Provider Urology
DX: Z20.822 Contact with and (suspected) exposure to COVID-19 (principal); Z01.818 Encounter for other preprocedural examination
CPT/HCPCS: 87635

== ENCOUNTER 2021-04-16 08:56 | Day surgery (SDC) | payer MEDICARE, SELFPAY ==
[2021-04-16] VITALS (7 sets, daily range): BP systolic 100–130; BP diastolic 37–70; PULSE 79–97; RESP 13–16; TEMP 36–36.4; O2SAT 94–100; BMI 27.3
--- NOTE | 2021-04-16 09:32 | ANES.PREOP_ITS ---
General Info Date of Service Date Performed: 04/16/21 Height: 5 ft 3 in Weight: 70 kg Body Mass Index (BMI): 27.3 Surgical Procedure: Operation Date: 04/16/21 10:10 Proposed Procedures Side Surgeon p Cystoscopy/Laser/Retrograde/Ureteroscopy Yoshi Snow MD Meds Allergies and Home Medications Allergies Allergy/AdvReac Type Severity Reaction Status Date / Time metoprolol AdvReac Severe extreme Verified 04/16/21 09:27 fatigue promethazine AdvReac Anxious/Restless Verified 04/16/21 09:27 w/Prometh w/codeine Home Medication Medication Instructions Recorded calcium-vitamin D3-vitamin K 2 ea PO DAILY 11/29/12 aspirin [Aspirin Low-Strength] 81 mg PO DAILY tab-cap 09/07/15 cholecalciferol (vitamin D3) 2,000 unit PO DAILY 09/07/15 [Vitamin D3] latanoprost 1 drp OPHTHALMIC HS drp 07/17/16 timolol 0.5 % eye drops 1 drp OP DAILY 01/19/20 diltiazem HCl 180 mg 180 mg PO HS #90 cap 09/29/20 capsule,extended release 24 hr ondansetron 4 mg PO Q8H PRN #30 tab 04/09/21 ibuprofen 600 mg tablet 600 mg PO Q6H PRN #120 tab 04/10/21 Current Visit Medications: Current Medications Generic Name Dose Route Start Last Admin Trade Name Freq PRN Reason Stop Dose Admin Ringer's Solution 1,000 mls @ 80 mls/hr 04/16/21 06:00 IV 04/16/21 23:59 INFUSION GURPREET Cefazolin Sodium/Dextrose 1 gm in 50 mls @ 100 mls/hr 04/16/21 10:00 Ancef Duplex IVPB 04/16/21 23:59 PREOP GURPREET IV Miscellaneous Supplies 1 each 04/16/21 06:00 Iv Access IV 04/16/21 23:59 DIRECTED GURPREET Sodium Chloride 0 ml 04/16/21 06:00 Normal Saline Flush 10 Ml Syr IV 04/16/21 23:59 PRN PRN Sodium Chloride 0 ml 04/16/21 06:00 Normal Saline 10 Ml Vial IJ 04/16/21 23:59 DIRECTED PRN Sterile Water 0 ml 04/16/21 06:00 Water,Injection,Sterile 10 Ml Vial IJ 04/16/21 23:59 DIRECTED PRN PFSH Active Problems Active Problems: Problem Status Onset Code Left ureteral stone N20.1 Kidney stone on left side N20.0 Hypertension I10 Tubular adenoma D36.9 Adenomatous polyps D36.9 Trochanteric bursitis 08/26/13 M70.60 Neuropathy 08/26/13 G62.9 Closed fracture of foot S92.909A Cataract H26.9 Head injury S09.90XA Closed fracture of left proximal humerus 08/24/19 S42.202A Positive colorectal cancer screening using Cologuard test R19.5 Anxiety 01/27/14 F41.9 Gastric motor function disorder K31.89 Kidney stone 06/05/02 N20.0 Vitamin D deficiency E55.9 Tricuspid valve insufficiency 12/16/17 I07.1 Osteoporosis 04/29/08 M81.0 Macular hole, left eye 01/20/18 H35.342 Discoordination 11/27/17 R27.9 Cervical pain 04/10/17 M54.2 Atrial arrhythmia 08/26/13 I49.8 Aortic valve insufficiency 11/27/17 I35.1 Medical History Medical History Adenomatous polyps Anxiety (01/27/14) Aortic valve insufficiency (11/27/17) Atrial arrhythmia (08/26/13) Mason score 2 = 1; no anticoagulation A fib Cervical pain (04/10/17) Discoordination (11/27/17) Pt. states this was in issue short term pt. believed it was vertigo related Gastric motor function disorder Kidney stone (06/05/02) Left humeral fracture Left ureteral stone Macular hole, left eye (01/20/18) [facility] [place]oporosis (04/29/08) Tricuspid valve insufficiency (12/16/17) Vitamin D deficiency Surgical History Surgical History Fracture, Closed Treatment 05/24/16; DR. HINTON;LEFT RING FINGER, MIDDLE PHALANX History of colonoscopy (~01/19/20) Tubular adenoma Tobacco Smoking/Tobacco Use Status: Never Passive smoking exposure: Yes Second hand exposure: Yes Alcohol Alcohol Intake: current Alcohol intake frequency: a few times a month Alcohol type: wine Substance Use Substance use: Never Substance use type: does not use Vital Signs and Lab Results Lab Results Blood Type / Crossmatch: No Data to Display Complete Blood Count: White Blood Count 10.80 10^3/uL (4.4-10.8) 04/09/21 21:08 04/09/21 Red Blood Count 5.12 10^6/uL (3.93-5.22) 04/09/21 21:08 04/09/21 Hemoglobin 15.5 g/dL (11.2-15.7) 04/09/21 21:08 04/09/21 Hematocrit 47.8 % (36.0-46.0) H 04/09/21 21:08 04/09/21 Platelet Count 266 10^3/uL (130-400) 04/09/21 21:08 04/09/21 Complete Metabolic Panel: Sodium Level 143 mmol/L (136-145) 04/09/21 21:43 04/09/21 Potassium Level 4.1 mmol/L (3.5-5.1) 04/09/21 21:43 04/09/21 Chloride Level 107 mmol/L (98-107) 04/09/21 21:43 04/09/21 Carbon Dioxide Level 26.5 mmol/L (21.0-32.0) 04/09/21 21:43 04/09/21 Blood Urea Nitrogen 22 mg/dL (7-18) H 04/09/21 21:43 04/09/21 Creatinine 1.5 mg/dL (0.55-1.02) H 04/09/21 21:43 04/09/21 Estimated GFR/1.73 m2 33.94 (mL/min/1.73m2) 04/09/21 21:43 04/09/21 Calcium Level 9.3 mg/dL (8.5-10.1) 04/09/21 21:43 04/09/21 Albumin 3.8 g/dL (3.4-5.0) 04/09/21 21:43 04/09/21 Glucose Level 124 mg/dL (74-106) H 04/09/21 21:43 04/09/21 Liver Function Panel: Alanine Aminotransferase (ALT/SGPT) 19 U/L (14-59) 04/09/21 21:43 04/09/21 Aspartate Amino Transf (AST/SGOT) 25 U/L (15-37) 04/09/21 21:43 04/09/21 Coagulation Panel: No Data to Display Cardiac Panel: No Data to Display Arterial Blood Gas: No Data to Display Venous Blood Gas: No Data to Display Pancreas Panel: Lipase 180 U/L (73-393) 04/09/21 21:43 04/09/21 Thyroid Panel: No Data to Display Infectious Disease: Coronavirus (COVID-19)(PCR) Negative (Negative) 04/13/21 16:15 04/13/21 Coronavirus 2019 Source Nasal/Nares 04/13/21 16:15 04/13/21 Blood Cultures: No Data to Display Toxicology Panel: No Data to Display Imaging and Studies Imaging and Studies Echocardiogram Summary: 2018: 1. Left ventricle: The cavity size was normal. There was mild focal basal hypertrophy of the septum. Systolic function was normal. The estimated ejection fraction was 55-60%. Wall motion was normal; there were no regional wall motion abnormalities. 2. Aortic valve: Trileaflet; mildly thickened leaflets. There was mild to moderate regurgitation. 3. Mitral valve: There was mild regurgitation. 4. Left atrium: The atrium was mildly to moderately dilated. 5. Right ventricle: The cavity size was normal. Wall thickness was normal. Systolic function was normal. 6. Right atrium: The atrium was mildly dilated. 7. Tricuspid valve: There was moderate regurgitatio Carotid Artery Summary:: 2018: no hemodynamically sig cervical carotid artery stenosis. Anesthesia Assessment and Plan Anesthesia History Personal History: No History of Anesthesia Complications Family History: No Family History of Anesthesia Complications Exercise Tolerance Exercise Tolerance: Metabolic Equivalents>4 Cardiac & Pulmonary Exam Cardiac Exam: Normal S1/S2 Heart Sounds Pulmonary Exam: Clear Bilateral Breath Sounds Airway Exam Known Difficult Airway: No Mallampati Class: 2 Mouth Opening: Normal (> 3cm) Thyromental Distance: Greater than 3 cm Neck Range of Motion: Full ROM Neck Circumference: Normal Teeth Condition: Normal Dentition ASA Classification ASA Score: ASA 3 Emergency Case?: No NPO Status NPO Status: NPO Clears >2 hours, Solids >8 hours Anesthesia Plan Resuscitation Status: Full Code Anesthesia Technique: General Anesthesia Airway Planned: LMA Monitors Used: Standard Monitors Preoperative Comments:: 76 yo female for left ureteral stone/cysto. sig PMHx: moderate TR, mild MR, atrial fibrillation (on dilt), Previous Anes: colo with prop only, no issues.
[2021-04-16] MEDS: Lactated Ringers 1,000 ML 80 ML IV (09:51)
--- NOTE | 2021-04-16 10:03 | W.PM.HP.N ---
Date of service: 04/16/21 Time of Service: 10:04 Assessment and Plan Assessment and plan (1) Left ureteral stone: Status: Acute Assessment and plan: We will move forward with a cystoscopy, left retrograde pyelogram, left flexible ureteroscopy and holmium laser lithotripsy of her stone. We discussed potential side effects including bleeding, infection, ureteral strictures and the inability to access the stone which would require a ureteral stent in a staged procedure. History of Present Illness History of Present Illness Chief Complaint: Left ureteral stone Narrative: This is a 76-year-old woman who has a history of kidney stones. Her previous stone was on the right side. She passed the stone spontaneously. She is not sure of any stone composition or metabolic work-up that might have been done. About 2 weeks ago, she noticed some gross painless hematuria. The hematuria resolved but then she a few days later, she developed left back pain which was reminiscent of her previous kidney stone. She had dry heaves and nausea but no vomiting. She had chills but no documented fever. She presented to the emergency room and was evaluated with a CT scan. An 8 mm left proximal ureteral stone was identified. She has continued to have the left sided pain and nausea. Her pain is currently being managed with alternating ibuprofen and acetaminophen. She is using Zofran twice a day for her nausea. Tells me that last evening, she had a 5-hour stretch of left-sided pain. The pain seemed to be more in the left lower abdomen compared to the left flank. She had dry heaves again, but no vomiting. She has no known metabolic abnormality such as gout or hyperparathyroid disease. She has no bleeding disorders or wound healing issues. She has had no problems with anesthetics previously. Review of Systems Narrative: No fevers No vision change or dysphasia No diabetes or thyroid dysfunction No shortness of breath, cough or hemoptysis No chest pain or palpitations Nausea and dry heaves. No hepatitis, ulcers, jaundice, diarrhea No seizures, strokes or peripheral neuropathy No bleeding disorders or anemia No gout [facility] Medical History Adenomatous polyps Anxiety (01/27/14) Aortic valve insufficiency (11/27/17) Atrial arrhythmia (08/26/13) Mason score 2 = 1; no anticoagulation A fib Cervical pain (04/10/17) Discoordination (11/27/17) Pt. states this was in issue short term pt. believed it was vertigo related Gastric motor function disorder Kidney stone (06/05/02) Left humeral fracture Left ureteral stone Macular hole, left eye (01/20/18) [facility] [place] Osteoporosis (04/29/08) Tricuspid valve insufficiency (12/16/17) Vitamin D deficiency Surgical History Fracture, Closed Treatment 05/24/16; DR. HINTON;LEFT RING FINGER, MIDDLE PHALANX History of colonoscopy (~01/19/20) Tubular adenoma Family History Mother , 78 Mental disorder DEMENTIA Stroke Father , 92 Atrial fibrillation Stroke Sister Atrial fibrillation Heart disease Brother COPD (chronic obstructive pulmonary disease) Maternal Grandfather , young No problems noted. Paternal Grandfather , 94 No problems noted. Maternal Grandmother , 78 Heart disease PACEMAKER Paternal Grandmother , 80 Ovarian cancer Brother , 73 COPD (chronic obstructive pulmonary disease) Son No problems noted. Daughter No problems noted. Daughter No problems noted. Sister , 84 Throat cancer Sister No problems noted. NIECE Lung cancer Social History (Updated 12/12/20 @ 16:32 by Carmen Green) Smoking/Tobacco Use Status: Never Second Hand Exposure: Yes Smoking risk assessment performed?: Yes Alcohol Intake: current Alcohol Intake frequency: a few times a month Alcohol type: wine Drug use: Never Substance use type: does not use Caregiver/Support person: No Household members: spouse Communication Needs: None Do you need help understanding health information?: Never Pets and animals: No Sexually active: No Do you think of yourself as: straight/heterosexual Current gender identity: male What is your relationship status?: How often do you talk on the phone with friends or family?: three or more times per week How often do you get together with friends or relatives?: three or more times per week How often do you attend sikhism or baptism services?: 1-3 times per year Do you belong to any clubs or organized social groups?: yes Panel score (0-1 are the most socially isolated patients): 3 What type of physical activity do you participate in: walking Duration: 60-90 minutes/day Frequency: 3-4 times per week Special jessica needs: No Seatbelt use: always Drive intox or ride w/intox driver trainer: No Do you feel safe at home: Yes Do you feel safe in your relationship?: Yes Meds Allergies and Home Medications Allergies Allergy/AdvReac Type Severity Reaction Status Date / Time metoprolol AdvReac Severe extreme Verified 04/16/21 09:27 fatigue promethazine AdvReac Anxious/Restless Verified 04/16/21 09:27 w/Prometh w/codeine Home Medications Medication Instructions Recorded Confirmed Type calcium-vitamin D3-vitamin K 2 ea PO DAILY 11/29/12 04/16/21 History aspirin [Aspirin Low-Strength] 81 mg PO DAILY tab-cap 09/07/15 04/16/21 History cholecalciferol (vitamin D3) 2,000 unit PO DAILY 09/07/15 04/16/21 History [Vitamin D3] latanoprost 1 drp OPHTHALMIC HS drp 07/17/16 04/16/21 History timolol 0.5 % eye drops 1 drp OP DAILY 01/19/20 04/16/21 History diltiazem HCl 180 mg 180 mg PO HS #90 cap 09/29/20 04/16/21 Rx capsule,extended release 24 hr ondansetron 4 mg PO Q8H PRN #30 tab 04/09/21 04/16/21 Rx ibuprofen 600 mg tablet 600 mg PO Q6H PRN #120 tab 04/10/21 04/16/21 Rx Exam Const General: cooperative and comfortable Resp Effort & Inspection: normal respiratory effort Auscultation: clear to auscultation bilaterally Cardio Rate: regular rate Rhythm: regular rhythm GI Palpation: soft Neuro General: patient alert, patient awake and patient oriented x3 Results Last Vital Signs Temp 36 C L 04/16/21 09:13 Pulse 91 H 04/16/21 09:13 Resp 16 04/16/21 09:13 BP 130/70 04/16/21 09:13 Pulse Ox 100 04/16/21 09:13
[2021-04-16] MEDS: ceFAZolin 1 GM/50 ML BAG IVPB (10:50)
[2021-04-16] MEDS: Lidocaine 2% Jelly 6 ML SYR (11:07)
[2021-04-16] MEDS: Omnipaque 300 MG/ML 50 ML BTL (11:08)
--- NOTE | 2021-04-16 11:42 | W.PM.DSUDISC ---
Discharge Plan Disposition Patient Disposition: HOME Condition: Stable Discharge Details Reason For Visit: ureteral stone Attending Provider: Yoshi Snow Primary Care Provider: Marisela Polanco Home Meds and New Rx's Prescriptions: No Action timolol 0.5 % drops 1 drp OP DAILY RF: 0 aspirin [Aspirin Low-Strength] 81 MG tablet,chewable 81 mg PO DAILY RF: 0 cholecalciferol (vitamin D3) [Vitamin D3] 2,000 UNIT capsule 2,000 unit PO DAILY RF: 0 latanoprost 2.5 ML drops 1 drp Ophthalmic HS RF: 0 diltiazem HCl 180 mg capsule,extended release 24hr 180 mg PO HS Qty: 90 RF: 5 ibuprofen 600 mg tablet 600 mg PO Q6H PRN (Reason: pain) Qty: 120 RF: 0 calcium-vitamin D3-vitamin K 1 EACH tablet,chewable 2 ea PO DAILY RF: 0 ondansetron 4 mg tablet,disintegrating 4 mg PO Q8H PRN (Reason: nausea and vomiting) Qty: 30 RF: 0 Discharge Instructions Additional Instructions: no need to strain urine followup 3 to 7 days for stent removal - please tell my office pt has string on her stent followup appt with me @6 weeks with renal US may use ibuprofen and tylenol as needed for pain Activity:: Activity as Tolerated Shower/Bathe:: 24 hours Diet:: As Tolerated Discharge Orders Discharge Orders: Discharge Order (Routine); Ordered 04/16/21 Ordered By: Yoshi Snow DS: Diagnosis Discharge Diagnosis (1) Left ureteral stone: Status: Acute
--- NOTE | 2021-04-16 11:46 | DI.RAD_ITS ---
Exam(s) XR RETROGRADE IN OR EXAM: XR RETROGRADE IN OR CLINICAL HISTORY: Left ureteral stone TECHNIQUE: 2D and realtime digital imaging was performed. COMPARISON: No exams were available for comparison FINDINGS: C-arm fluoroscopy was utilized by Dr. Snow during retrograde ureterography. Please see Dr. Snow pr ocedure note. IMPRESSION: RADIATION DOSE DELIVERED: janina Thakkar= 5.28 mGy
--- NOTE | 2021-04-16 11:48 | ROE_ITS ---
Date of service: 04/16/21 Time of Service: 11:48 Operative Note Operative Note DATE OF PROCEDURE: 04/16/21 PRE-OP DIAGNOSIS: Left ureteral stone POST-OP DIAGNOSIS: same PROCEDURE: Cystoscopy, left retrograde pyelogram, left ureteroscopy, holmium laser lithotripsy of ureteral stone, stone extraction, insert left ureteral stent SURGEON: Yoshi Snow ANESTHESIA TYPE: Local By Surgeon and General LMA/ETT Refer to Anesthesia Record ESTIMATED BLOOD LOSS: 10 PATHOLOGY: other (stone for chemical analysis) COMPLICATIONS: None Patient was transported to: PACU Patient's condition: stable Implants: 4.8 Kazakh by 22 to 30 cm left ureteral stent Indications: This is a 76-year-old woman with a past history of kidney stones about 15 years ago. She presented to our emergency department with left flank pain and gross hematuria. She was found to have an 8 mm proximal left ureteral stone. She was initially treated with conservative management but has not passed her stone, she presents now for stone manipulation. Findings: left ureteral stone had migrated from proximal ureter to pelvic brim Procedure Description: The patient was brought to the operating room on 04/16/2021. She was given preoperative IV antibiotics. After successful induction of general anesthesia, she was placed in the dorsal lithotomy position. Her genitalia was prepped and draped sterilely. A 22 Kazakh rigid cystoscope was passed through the urethra into the bladder. The bladder was inspected with a 30 degree lens. No stones were seen within the bladder. The left ureteral orifice was visualized and was cannulated with a 5 Kazakh access catheter. A retrograde pyelogram was obtained by injecting Omnipaque through the access catheter under fluoroscopic guidance. Based on the retrograde pyelogram, it appeared that the stone had migrated to the level of the pelvic brim. I was then able to pass a straight Glidewire through the access catheter and up the remainder of the ureter. The cystoscope and access catheter were removed leaving the safety wire in place. I then used a semirigid ureteroscope and passed the scope into the ureteral orifice. I was able to advance the scope up to the level of the stone. I then used a 365 micron holmium laser fiber and I was able to fracture the stone using a power setting of 0.8 and a rate of 8. All visible stone fragments were then removed in a [email or web address] stone basket. The stone fragments were sent to pathology for chemical analysis. As of the trauma associated with multiple passes of the semirigid ureteroscope, we elected to place a ureteral stent. I chose a 4.8 Kazakh variable length stent and advanced it over the safety wire. The proximal end of the stent was curled in the kidney and the distal and was curled within the bladder. The safety string was left in place and brought through the urethra. The end of the safety string was tucked into the patient's vaginal cavity. The patient tolerated this procedure well with no complications.
[2021-04-16] MEDS: Phenazopyridine 200 MG TAB PO (13:07)
--- NOTE | 2021-04-16 13:30 | W.ANESPOSTOP ---
Postoperative Evaluation Date, Time and Location Date Performed: 04/16/21 Time Performed: 13:30 Patient Location: Day Surgery Unit Vital Signs Most Recent Imported Vital Signs: Most Recent Vital Signs Temp Pulse Resp BP Pulse Ox 36.2 C L 87 16 127/70 95 04/16/21 12:55 04/16/21 12:55 04/16/21 12:55 04/16/21 12:55 04/16/21 12:55 Pain Score Most Recent Pain Score: Most Recent Pain Score Pain Level 0 04/16/21 12:55 Assessment Mental Status: Awake (Alert & Oriented to Patient Baseline) Airway and Respiratory Function: Patent airway with normal (patient baseline) respiratory exam Cardiovascular Function: Hemodynamically Stable Hydration Status: Adequately Hydrated Nausea & Vomiting: No Nausea or Vomiting Pain: Pt. Denies Any Pain Peripheral Nerve Block: Patient did not receive a nerve block Postoperative Comments:: Discussed her potential aspiration, and reasons that she should present to the ED (increasing shortness of breath, chest pain, increased coughing). She was sent home with the aspiration pneumonia education packet.
[2021-04-20 11:52] LABS: Source: Ureter
== END 2021-04-16 14:15 | disposition home or self-care (01) ==
PROVIDERS: PCP Family Medicine; Visit Provider Urology
PROC: 0TC78ZZ Extirpation of Matter from Left Ureter, Via Natural or Artificial Opening Endoscopic (ICD-10-PCS; CPT 52356; principal; 2021-04-16 10:00)
DX: N20.1 Calculus of ureter (principal)
CPT/HCPCS: 52356; 74420; 82365; J0690; J1100; J2001; J2405; J2704; Q9967

== ENCOUNTER → 2021-04-19 15:26 | Outpatient (BNVA) | payer MEDICARE, SELFPAY | PROVIDERS: PCP Family Medicine; Referring Provider Family Medicine; Visit Provider Urology | DX: Z48.816 Encounter for surgical aftercare following surgery on the genitourinary system (principal); R10.9 Unspecified abdominal pain; N13.30 Unspecified hydronephrosis | CPT/HCPCS: 99213; J1885; 96372 ==

== ENCOUNTER 2021-05-29 00:36 | Outpatient (CLI) | payer MEDICARE, SELFPAY ==
--- NOTE | 2021-05-29 06:45 | DI.US_ITS ---
Exam(s) US RENAL EXAM: US RENAL CLINICAL HISTORY: r/o hydronephrosis after ureteroscopy,LT URETERAL STONE,N20.1 TECHNIQUE: Ultrasound performed using standard protocol. COMPARISON: US Cardiac from 12/16/2017 FINDINGS: The kidneys are normal in size and shape. There is no evidence renal mass, hydronephrosis, or nephro lithiasis. Urinary bladder is nearly empty and cannot be evaluated. Ureteral jets are noted bilaterally. IMPRESSION: Negative renal ultrasound DATA REPOSITORY:
== END 2021-05-29 00:56 ==
PROVIDERS: PCP Family Medicine; Visit Provider Urology
DX: N20.1 Calculus of ureter (principal)
CPT/HCPCS: 76770; 81003; 99214

== ENCOUNTER 2021-07-10 08:13 | Outpatient (REF) | payer MEDICARE, SELFPAY ==
[2021-07-10 12:43] LABS: CLEAVED CELLS 136 mmol/24h (40-220); Creatinine,Urine 108.87 mg/dL; Sodium, Urine 124 mmol/L; Total Volume 1100 ml
[2021-07-11 08:38] LABS: Timed Urine Volume 1100 mL; Uric Acid Urine 44.2 mg/dL (See Note); Uric Acid Urine 24hr 486 mg/24hrs (250-750)
[2021-07-11 09:01] LABS: Calcium Urine 36.1 mg/dL (See Note); Calcium Urine 24 hr 397 mg/24hrs (100-300); Timed Urine Volume 1100 mL
[2021-07-12 12:29] LABS: Oxalate, U 0.06 mmol/24 h; Oxalate, U 5.3 mg/24 h (9.7 - 40.5); Urine Volume 1100 mL
[2021-07-14 05:23] LABS: Citric Acid, 24hr Urine 617 mg/24 h (100-1300); Citric Acid/Creat Ratio 540 mg/g creat (180-1070); Creatinine, 24 hr Urine 1.14 g/24 h (0.50-2.15); Total Volume 1100 mL
== END 2021-07-10 08:14 | disposition home or self-care (01) ==
LOC: LBN 08:13
PROVIDERS: PCP Family Medicine; Visit Provider Urology
DX: N20.0 Calculus of kidney (principal)
CPT/HCPCS: 82507; 83735; 81050; 82340; 82570; 83945; 84300; 84560

== ENCOUNTER 2021-08-31 03:56 | Outpatient (CLI) | payer MEDICARE, SELFPAY ==
[2021-08-31 08:58] LABS: ALT 22 U/L (14-59); AST 22 U/L (15-37); Albumin 3.9 g/dL (3.4-5.0); Alkaline Phosphatase 139 U/L (46-116); Anion Gap 10.4 mmol/L (3-11); BUN 22 mg/dL (7-18); Bilirubin, Total 0.5 mg/dL (0.2-1.0); CO2 25.6 mmol/L (21.0-32.0); CREATININE 1.2 mg/dL (0.55-1.02); Calcium 9.1 mg/dL (8.5-10.1); Chloride 105 mmol/L (98-107); Estimated GFR 43.91 (mL/min/1.73m2); Glucose 106 mg/dL (74-106); Potassium 4.4 mmol/L (3.5-5.1); Sodium 141 mmol/L (136-145); Total Protein 6.9 g/dL (6.4-8.2)
== END 2021-08-31 03:57 | disposition home or self-care (01) ==
LOC: LBO 03:57
PROVIDERS: PCP Family Medicine; Visit Provider Urology
DX: I10 Essential (primary) hypertension (principal)
CPT/HCPCS: 36415; 80053

== ENCOUNTER → 2021-09-04 14:17 | Outpatient (BNVA) | payer MEDICARE, SELFPAY | PROVIDERS: PCP Family Medicine; Referring Provider Family Medicine; Visit Provider Urology | DX: N20.0 Calculus of kidney (principal); R82.994 Hypercalciuria | CPT/HCPCS: 99215 ==

== ENCOUNTER 2022-02-20 02:39 | Outpatient (CLI) | payer MEDICARE, SELFPAY ==
[2022-02-20 12:13] LABS: ALT 31 U/L (14-59); AST 33 U/L (15-37); Albumin 4.1 g/dL (3.4-5.0); Alkaline Phosphatase 86 U/L (46-116); Anion Gap 7.7 mmol/L (3-11); BUN 25 mg/dL (7-18); Bilirubin, Total 1.1 mg/dL (0.2-1.0); CO2 30.3 mmol/L (21.0-32.0); CREATININE 1.2 mg/dL (0.55-1.02); Calcium 9.6 mg/dL (8.5-10.1); Chloride 103 mmol/L (98-107); Glucose 94 mg/dL (74-106); Potassium 3.3 mmol/L (3.5-5.1); Sodium 141 mmol/L (136-145); Total Protein 7.5 g/dL (6.4-8.2)
== END 2022-02-20 02:40 | disposition home or self-care (01) ==
LOC: LBO 02:40
PROVIDERS: PCP Family Medicine; Visit Provider Family Medicine
DX: I10 Essential (primary) hypertension (principal); R82.994 Hypercalciuria
CPT/HCPCS: 36415; 80053

== ENCOUNTER 2022-02-22 17:09 | Outpatient (REF) | payer MEDICARE, SELFPAY ==
[2022-02-23 09:48] LABS: Calcium Urine 6.6 mg/dL (See Note); Calcium Urine 24 hr 182 mg/24hrs (100-300); Timed Urine Volume 2750 mL
== END 2022-02-22 17:10 | disposition home or self-care (01) ==
LOC: LBN 17:09
PROVIDERS: PCP Family Medicine; Visit Provider Urology
DX: R82.994 Hypercalciuria (principal)
CPT/HCPCS: 81050; 82340

== ENCOUNTER → 2022-03-26 07:43 | Outpatient (BNVA) | payer MEDICARE, SELFPAY | PROVIDERS: PCP Family Medicine; Referring Provider Family Medicine; Visit Provider Nurse Practitioner Gerontology | DX: E87.6 Hypokalemia (principal); R82.994 Hypercalciuria | CPT/HCPCS: 99214 ==

== ENCOUNTER 2022-06-04 11:09 | Outpatient (REF) | payer MEDICARE, SELFPAY ==
[2022-06-05 09:43] LABS: Calcium Urine 17.3 mg/dL (See Note); Calcium Urine 24 hr 260 mg/24hrs (100-300); Timed Urine Volume 1500 mL
== END 2022-06-04 11:10 | disposition home or self-care (01) ==
LOC: LBN 11:09
PROVIDERS: Nurse Practitioner Gerontology; PCP Family Medicine; Visit Provider Urology
DX: R82.994 Hypercalciuria; Z87.442 Personal history of urinary calculi; I10 Essential (primary) hypertension
CPT/HCPCS: 81050; 82340

== ENCOUNTER 2022-12-17 12:34 | Outpatient (REF) | payer MEDICARE, SELFPAY ==
[2022-12-18 10:14] LABS: Calcium Urine 16.1 mg/dL (See Note); Calcium Urine 24 hr 282 mg/dL (100-300); Timed Urine Volume 1750 mL
== END 2022-12-17 12:35 | disposition home or self-care (01) ==
LOC: LBN 12:34
PROVIDERS: PCP Family Medicine; Visit Provider Nurse Practitioner Gerontology
DX: R82.994 Hypercalciuria; Z87.442 Personal history of urinary calculi
CPT/HCPCS: 81050; 82340

== ENCOUNTER → 2023-01-02 10:15 | Outpatient (BNVA) | payer MEDICARE, SELFPAY | PROVIDERS: PCP Family Medicine; Referring Provider Family Medicine; Visit Provider Nurse Practitioner Gerontology | DX: R82.994 Hypercalciuria (principal); I10 Essential (primary) hypertension | CPT/HCPCS: 99214 ==

== ENCOUNTER 2023-03-14 09:02 | Outpatient (CLI) | payer MEDICARE, SELFPAY ==
[2023-03-14 12:19] LABS: HCT 46.5 % (36.0-46.0); MCH 30.2 pg (27.0-33.0); MCHC 32.3 % (32.0-36.0); MCV 94 fL (80-95); MPV 10.2 fL (8.0-11.0); Platelet Count 217 10^3/uL (130-400); RBC 4.97 10^6/uL (3.93-5.22); RDW 13.3 % (11.7-14.6); RDW-SD 46.1 fL
[2023-03-14 12:46] LABS: ALT 21 U/L (14-59); AST 25 U/L (15-37); Albumin 3.9 g/dL (3.4-5.0); Alkaline Phosphatase 96 U/L (46-116); Anion Gap 6.7 mmol/L (3-11); BUN 19 mg/dL (7-18); Bilirubin, Total 1.1 mg/dL (0.2-1.0); CO2 28.3 mmol/L (21.0-32.0); CREATININE 1.3 mg/dL (0.55-1.02); Calcium 9.1 mg/dL (8.5-10.1); Calculated LDL 131 mg/dL (<100); Chloride 106 mmol/L (98-107); Cholesterol 205 mg/dL (<200); Estimated GFR 42.62 (mL/min/1.73m2); Glucose 93 mg/dL (74-106); HDL Cholesterol 55 mg/dL (40-60); Potassium 3.9 mmol/L (3.5-5.1); Sodium 141 mmol/L (136-145); TSH (W/Ref FT4) 2.33 uIU/mL (0.36-3.74); Total Protein 7.3 g/dL (6.4-8.2); Triglyceride 97 mg/dL (<150)
== END 2023-03-14 09:03 | disposition home or self-care (01) ==
LOC: LOS 09:05
PROVIDERS: PCP Family Medicine; Visit Provider Family Medicine
DX: I48.91 Unspecified atrial fibrillation (principal); K31.89 Other diseases of stomach and duodenum; Z01.30 Encounter for examination of blood pressure without abnormal findings; I10 Essential (primary) hypertension
CPT/HCPCS: 36415; 80053; 80061; 85027; 84443

== ENCOUNTER 2023-04-21 10:41 | Outpatient (REF) | payer MEDICARE, SELFPAY ==
[2023-04-21 12:32] LABS: COMMENT (LAB VIEW ONLY) 95.88 mg/dL; Microalb ug/mg Crea 3.4 ug/mg Cr
== END 2023-04-21 10:42 | disposition home or self-care (01) ==
LOC: LBN 10:41
PROVIDERS: PCP Family Medicine; Visit Provider Family Medicine
DX: N18.31 Chronic kidney disease, stage 3a (principal)
CPT/HCPCS: 82043; 82570

== ENCOUNTER 2024-02-25 18:50 | Emergency (ER) | payer MEDICARE, SELFPAY ==
[2024-02-25 19:13] VITALS: BP 122/78; PULSE 96; RESP 15; TEMP 36.2; O2SAT 97
--- NOTE | 2024-02-25 20:00 | DI.RAD_ITS ---
Exam(s) XR FOOT RT LIMITED EXAM: XR FOOT RT LIMITED CLINICAL HISTORY: Toe wound, eval osteo. TECHNIQUE: 2D digital imaging was performed. Three views. COMPARISON: No exams were available for comparison FINDINGS: BONES: No acute fracture is present. No bony destructive lesion is seen. JOINTS: No dislocation present. SOFT TISSUE: Swelling of the great toe greater medially. Small amount of soft tissue air is seen. N o foreign body. IMPRESSION: Soft tissue swelling of great toe. No plain film evidence of osteomyelitis. DATA REPOSITORY: RADIATION DOSE DELIVERED:
--- NOTE | 2024-02-25 21:12 | DI.VRAD_ITS ---
PROCEDURE INFORMATION: Exam: XR Right Toe(s) Exam date and time: 02/25/2024 8:38 PM Age: 79 years old Clinical indication: Other: Toe wound, eval osteo TECHNIQUE: Imaging protocol: Radiologic exam of the right toes. Views: Minimum 2 views. COMPARISON: No relevant prior studies available. FINDINGS: Bones/joints: No fracture or dislocation. No erosive changes in the great toe to confirm osteomyelitis. Soft tissues: Soft tissue swelling of the great toe. IMPRESSION: No acute osseous findings. Dictated and Authenticated by: Daljit Caban MD. Ordering:AURE Parra MD
[2024-02-25 21:29] VITALS: BP 126/87; PULSE 88; RESP 18; TEMP 36.7; O2SAT 95
[2024-02-25] MEDS: Doxycycline Hyclate 100 MG CAP PO (22:22)
--- NOTE | 2024-02-25 22:37 | W.ED.GENAD ---
Discharge Plan Discharge Details Chief Complaint: RashLesion Clinical Impression: Cellulitis Primary Care Provider: Marisela Polanco ED Provider: Africa Webster Home Meds and New Rx's Prescriptions: New doxycycline hyclate 100 mg capsule 100 mg PO BID Qty: 14 0RF Continued timolol 0.5 % drops 1 drp OP BID Patient Comments: left eye loratadine [Allergy Relief (loratadine)] 10 mg tablet 10 mg PO DAILY cholecalciferol (vitamin D3) [Vitamin D3] 2,000 UNIT capsule 2,000 unit PO DAILY latanoprost 2.5 ML drops 1 drp Ophthalmic HS Xarelto 20 mg tablet 20 mg PO DAILY Qty: 90 5RF Rx Instructions: must administer with evening meal calcium-vitamin D3-vitamin K 1 EACH tablet,chewable 2 ea PO DAILY Discharge Instructions Additional Instructions: I recommend that you be reexamined by your primary care provider within the next week to make sure your foot is healing well. Please follow-up with podiatry in the next couple weeks for definitive management of your callus. You are being treated with antibiotics for infected callus. Please take as prescribed. Please note that doxycycline may cause photosensitivity reaction jacqueline to a sunburn, so be sure to wear sunscreen at all times when you are outside and avoid sun is much as possible, wearing long layers while taking this medication. Keep your foot clean and dry. Wash daily with antibacterial soap and water. Soak in warm water for 15 to 20 minutes at a time 3-4 times a day. Well-fitting shoes and cotton socks. Return to emergency care if you develop worsening swelling/redness despite 48 hours of treatment, increasing pain, spreading of swelling and pain up your foot, or if you are very worried and need to be rechecked again immediately. Referrals: Jody Mathews DPM [[place] [facility] STAFF PHYSICIAN] - [facility] General Date/Time Provider Initiated Documentation: 02/25/24 20:06. [facility] Narrative: Nivia is a 79-year-old female who presents to the emergency department today for evaluation of right great toe swelling and redness. She reports that she has had a callus on the side of her toe for a very long time, not quite sure when it started. She tried to use some Dr. Conway's callus remover, which caused the callus to lift up. It has since started draining reddish serosanguineous drainage and the entire toe has turned red and swollen. She does have neuropathy, denies pain. She reports she is overall feeling well, no fever/chills, general malaise, other joint aches, change in energy. No history of immunocompromise. No history of antibiotic allergies or antibiotic resistant infections. Physical exam remarkable for large callus noted on the plantar aspect of the right great toe with central fissure with black noted underneath it. Scant dried reddish drainage noted around the callus. The toe is swollen from the distal aspect to the MTP joint. She does have full range of motion to the toe and sensation is intact. No swelling or pain to the dorsum of the foot. History presentation consistent with infected callus. A x-ray was performed to rule out osteomyelitis or other bony involvement, no acute findings noted by my own interpretation, confirmed by radiologist. As patient is well-appearing, no red flags concerning for sepsis (no tachycardia, fever, systemic complaints). Will treat with doxycycline and have patient follow-up with podiatry. paralegal legal secretary to provide referral to podiatry and . Reviewed wound care and red flags indicate need for return to emergency care. She voiced that she is agreeable with plan of care. Related Data Home Medications ?Medication ?Instructions ?Recorded ?Confirmed calcium-vitamin D3-vitamin K 500 2 ea PO DAILY 11/29/12 01/28/24 mg-1,000 unit-40 mcg chewable tablet cholecalciferol (vitamin D3) 50 2,000 unit PO DAILY 09/07/15 01/28/24 mcg (2,000 unit) capsule (Vitamin D3) latanoprost 0.005 % eye drops 1 drp ophthalmic (eye) HS 07/17/16 01/28/24 timolol 0.5 % eye drops 1 drp ophthalmic (eye) BID 03/05/22 01/28/24 Xarelto 20 mg tablet (rivaroxaban) 20 mg PO DAILY #90 tabs 09/17/23 01/28/24 loratadine 10 mg tablet (Allergy 10 mg PO DAILY 12/16/23 01/28/24 Relief (loratadine)) doxycycline hyclate 100 mg capsule 100 mg PO BID #14 caps 02/25/24 Previous Rx's ?Medication ?Instructions ?Recorded Xarelto 20 mg tablet (rivaroxaban) 20 mg PO DAILY #90 tabs 09/17/23 doxycycline hyclate 100 mg capsule 100 mg PO BID #14 caps 02/25/24 Allergies Allergy/AdvReac Type Severity Reaction Status Date / Time metoprolol AdvReac Severe extreme Verified 01/28/24 08:50 fatigue promethazine AdvReac Anxious/Restless Verified 01/28/24 08:50 w/Prometh w/codeine General Stated Complaint: RashLesion TAYLOR: 4 Review of Systems Narrative: see HPI Exam Const General: cooperative, healthy appearing, comfortable, no acute distress, well developed and well groomed Nutritional Appearance: average body habitus Extrem Right lower extremity: full ROM, normal capillary refill and foot Details: normal capillary refill and abnormal to inspection (erythema, edema noted to entire R great toe) Course Vital Signs Vital signs: Vital Signs Temperature 36.2 C L 02/25/24 19:13 Pulse 96 H 02/25/24 19:13 Respiratory Rate 15 02/25/24 19:13 Blood Pressure 122/78 02/25/24 19:13 Pulse Oximetry 97 02/25/24 19:13 Temperature 36.7 C 02/25/24 21:29 Temperature Source Oral 02/25/24 21:29 Pulse 88 02/25/24 21:29 Pulse Rhythm Regular 02/25/24 21:29 Pulse Strength Normal 02/25/24 21:29 Respiratory Rate 18 02/25/24 21:29 Respiratory Effort Normal 02/25/24 21:29 Respiratory Depth Normal 02/25/24 21:29 Respiratory Pattern Normal 02/25/24 21:29 Blood Pressure 126/87 02/25/24 21:29 Blood Pressure Mean 100 02/25/24 21:29 Blood Pressure Position Sitting 02/25/24 21:29 Pulse Oximetry 95 02/25/24 21:29 Oxygen Delivery Method Room Air 02/25/24 21:29 Oxygen Flow Rate 0 02/25/24 21:29 Pain Level 4 02/25/24 21:29 Medical Decision Making Quality:SDOH Health Related Social Needs: No Data to Display PFSH All Active Problems (Updated 02/25/24 @ 22:14 by Africa Harvey) Cellulitis (Acute) Renal insufficiency (Chronic) CKD stage G3a/A1, GFR 45-59 and albumin creatinine ratio <30 mg/g (Acute) Atrial fibrillation (Chronic) Hypercalciuria (Acute) Hypertension (Chronic) Tubular adenoma (Acute) Adenomatous polyps (Acute) Neuropathy (Chronic 08/26/13) Cataract (Chronic) Head injury (Acute) Closed fracture of left proximal humerus (Acute 08/24/19) Positive colorectal cancer screening using Cologuard test (Acute) Anxiety (Chronic 01/27/14) Gastric motor function disorder (Chronic) Vitamin D deficiency (Chronic) Tricuspid valve insufficiency (Chronic 12/16/17) Osteoporosis (Chronic 04/29/08) Macular hole, left eye (Chronic 01/20/18) [facility] [place] (Chronic 11/27/17) Pt. states this was in issue short term pt. believed it was vertigo related Cervical pain (Chronic 04/10/17) Atrial arrhythmia (Chronic 08/26/13) Mason score 2 = 1; no anticoagulation A fib Aortic valve insufficiency (Chronic 11/27/17) Medical History Left humeral fracture Left ureteral stone Surgical History Fracture, Closed Treatment 05/24/16; DR. HINTON;LEFT RING FINGER, MIDDLE PHALANX History of colonoscopy (~01/19/20) Tubular adenoma Family History Mother , 78 Mental disorder DEMENTIA Stroke Father , 92 Atrial fibrillation Stroke Sister Atrial fibrillation Heart disease Brother COPD (chronic obstructive pulmonary disease) Maternal Grandfather , young No problems noted. Paternal Grandfather , 94 No problems noted. Maternal Grandmother , 78 Heart disease PACEMAKER Paternal Grandmother , 80 Ovarian cancer Brother , 73 COPD (chronic obstructive pulmonary disease) Son No problems noted. Daughter No problems noted. Daughter No problems noted. Sister , 84 Throat cancer Sister No problems noted. NIECE Lung cancer Social History Smoking/Tobacco Use Status: Never Second Hand Exposure: Yes Smoking risk assessment performed?: Yes Alcohol Intake: current Alcohol Intake frequency: holidays/special occasions only Alcohol type: beer and wine Drug use: Never Substance use type: does not use Caregiver/Support person: No Household members: spouse Communication Needs: None Do you need help understanding health information?: Never Pets and animals: No Sexually active: No Do you think of yourself as: straight/heterosexual Current gender identity: female What is your relationship status?: How often do you talk on the phone with friends or family?: three or more times per week How often do you get together with friends or relatives?: three or more times per week How often do you attend christian or jehovah's witness services?: 1-3 times per year Do you belong to any clubs or organized social groups?: yes Panel score (0-1 are the most socially isolated patients): 3 What type of physical activity do you participate in: walking and other Details: bowling Duration: 45-60 minutes/day Frequency: daily Special jessica needs: No Seatbelt use: always Drive intox or ride w/intox medical van driver: No Do you feel safe at home: Yes Do you feel safe in your relationship?: Yes
--- NOTE | 2024-02-26 04:55 | NUR.NOTE ---
Pt placed on care management referral list to see Podiatry for callus with cellulitis on the right great toe to be seen within 1 week.
== END 2024-02-25 22:23 | disposition home or self-care (01) ==
PROVIDERS: Emergency Provider Nurse Practitioner Family; PCP Family Medicine
DX: L03.115 Cellulitis of right lower limb (principal)
CPT/HCPCS: 99283; 73620

== ENCOUNTER → 2024-03-16 08:00 | Outpatient (BNVA) | payer MEDICARE, SELFPAY | PROVIDERS: PCP Family Medicine; Referring Provider Family Medicine; Visit Provider Podiatrist | DX: L03.115 Cellulitis of right lower limb (principal); L97.512 Non-pressure chronic ulcer of other part of right foot with fat layer exposed; B07.0 Plantar wart; N18.9 Chronic kidney disease, unspecified | CPT/HCPCS: 11042; 99214 ==

== ENCOUNTER → 2024-04-12 12:58 | Outpatient (BNVA) | payer MEDICARE, SELFPAY ==
--- NOTE | 2024-06-02 15:06 | NUR.NOTE ---
Accessed patient chart to print provider note to be faxed to [facility] for billing purposes. Nursing Note:
== END ==
PROVIDERS: PCP Family Medicine; Referring Provider Family Medicine; Visit Provider Podiatrist
DX: L03.115 Cellulitis of right lower limb (principal); L97.512 Non-pressure chronic ulcer of other part of right foot with fat layer exposed; B07.0 Plantar wart
CPT/HCPCS: 11042

== ENCOUNTER 2024-04-12 15:17 | Outpatient (REF) | payer MEDICARE, SELFPAY | END 2024-04-12 15:18 | disposition home or self-care (01) | LOC: LBN 15:17 | PROVIDERS: PCP Family Medicine; Visit Provider Podiatrist | DX: L97.529 Non-pressure chronic ulcer of other part of left foot with unspecified severity | CPT/HCPCS: 87070; 87075; 87205 ==

== ENCOUNTER 2025-01-04 04:18 | Outpatient (CLI) | payer MEDICARE, SELFPAY ==
[2025-01-04 08:07] LABS: HCT 46.2 % (36.0-46.0); HGB 14.9 g/dL (11.2-15.7); MCH 30.2 pg (27.0-33.0); MCHC 32.3 % (32.0-36.0); MCV 94 fL (80-95); MPV 9.8 fL (8.0-11.0); Platelet Count 202 10^3/uL (130-400); RBC 4.93 10^6/uL (3.93-5.22); RDW 13.4 % (11.7-14.6); RDW-SD 46.5 fL; WBC 4.31 10^3/uL (4.4-10.8)
[2025-01-04 08:32] LABS: ALT 22 U/L (14-59); AST 24 U/L (15-37); Albumin 3.9 g/dL (3.4-5.0); Alkaline Phosphatase 99 U/L (46-116); Anion Gap 6.9 mmol/L (3-11); BUN 22 mg/dL (7-18); Bilirubin, Total 1.0 mg/dL (0.2-1.0); CO2 29.1 mmol/L (21.0-32.0); Calcium 9.0 mg/dL (8.5-10.1); Chloride 105 mmol/L (98-107); Estimated GFR 51.75 (mL/min/1.73m2); Glucose 97 mg/dL (74-106); Potassium 4.0 mmol/L (3.5-5.1); Sodium 141 mmol/L (136-145); Total Protein 6.9 g/dL (6.4-8.2)
== END 2025-01-04 04:19 | disposition home or self-care (01) ==
PROVIDERS: PCP Family Medicine; Visit Provider Family Medicine
DX: I49.8 Other specified cardiac arrhythmias (principal); I10 Essential (primary) hypertension; N28.9 Disorder of kidney and ureter, unspecified; I48.91 Unspecified atrial fibrillation
CPT/HCPCS: 36415; 80053; 85027; 84100